=== PATIENT | female | born 1935 | race African-American/Black ===

== ENCOUNTER 2019-04-06 10:12 | Inpatient (IN) | payer OTHER ==
[~2019-04-06] VITALS: Ht 160 cm; Wt 74.0 kg
[2019-04-06 10:20] VITALS: Ht 160 cm; Wt 74.0 kg
--- NOTE | 2019-04-06 10:20 | NUR ---
PT BIB [facility] FROM HER "HER DR OFFICE" PER MEDIC PT "FEELING WEAK SINCE HER "TUMOR REMOVAL FOR BLADDER CANCER" ON 03/30/19, PER MEDICS PT ALSO C/O DIZZINESS WITH NO LOC. PER MEDIC SHE WAS NARENDRA HOWEVER PT STS "THAT IS HER NORMAL" PT HAS HX THYROIDECTOMY, BLADDER CANCER, MELANOMA, AND DM BUT "NO LONGER DIABETIC" UPON ARRIVAL PT IS AAOX4, SPEAKING FULL CLEAR SENTENCES, PT APEPARS LETHARGIC WITH PALE, DRY, WARM SKIN. PT LIPS APPEAR DRY, PT STS "HAVEN'T FELT GOOD TO EAT." PT STS "THEY DIDN'T REMOVE ANYTHING FROM MY BLADDER YET BUT THEY CHECKED AND TOLD ME MY MELANOMA SPREAD EVERYWHERE AND THAT I HAD BLADDER CANCER A WEEK AGO" PT STS +DIZZINESS WITH GENERAL WEAKNESS AT THIS TIME, PT GOWNED AND PLACED ON FULL CM, NSR.
--- NOTE | 2019-04-06 10:28 | NUR ---
MD WOODS AT BEDSIDE PERFOMRING MSE
--- NOTE | 2019-04-06 10:29 | NUR ---
MD NEGRETE AT BEDSIDE PERFORMING MSE
--- NOTE | 2019-04-06 11:16 | NUR ---
EKG IN PROGRESS
--- NOTE | 2019-04-06 11:17 | NUR ---
DAUGHTER IN LAW AT BEDSIDE
--- NOTE | 2019-04-06 11:27 | NUR ---
PT INSTRUCTED TO PROVIDE URINE HARSHAD, PT STS "IT IS HARD FOR ME TO GO BUT I JUST GOT MY ALEJO REMOVED I DON'T WANT ANOTHER JUST GIVE ME A BEDPAN FIRST AND I WILL TRY" BED MENDEZ PROVIDED. FRIEND AT BEDSIDE, CALL LIGHT WITHIN REACH.
[2019-04-06 11:29] LABS: PLATELET COUNT 155 x10^3mcL (130-400)
[2019-04-06 11:35] LABS: RED CELL DISTRIBUTION WIDTH 15.8 % (11.5-14.5)
[2019-04-06 11:43] LABS: CALCIUM 8.3 mg/dL (8.5-10.1); CARBON DIOXIDE 25.2 mmol/L (21-32); CHLORIDE SERUM 102 mmol/L (98-107); CREATININE SERUM 1.1 mg/dL (0.6-1.0); GLUCOSE SERUM 102 mg/dL (74-106); POTASSIUM SERUM 3.8 mmol/L (3.5-5.1); SODIUM SERUM 136 mmol/L (136-145)
[2019-04-06 11:55] LABS: ALKALINE PHOSPHATASE 64 U/L (46-116); ALT/SGPT 19 U/L (14-59); AST/SGOT 42 U/L (15-37); BILIRUBIN TOTAL 0.3 mg/dL (0.20-1.00); FREE T4 1.23 ng/dL (0.76-1.46); TOTAL PROTEIN, SERUM 6.3 g/dL (6.4-8.2)
[2019-04-06 12:03] LABS: ovalocyte/elliptocyte 1+
[2019-04-06 12:04] LABS: ALBUMIN 2.9 g/dL (3.4-5.0); acanthocyte (spur cell) 2+; rbc morphology (normal/abnorm) ABNORMAL (NORMAL)
[2019-04-06 12:09] LABS: BAND NEUTROPHIL 1 % (0-10); BASOPHIL 0 % (0-2); MONOCYTE 2 % (0-7); PLATELET MORPHOLOGY PLATELETS DECREASED; SEGMENTED NEUTROPHILS 91 % (37-75)
--- NOTE | 2019-04-06 12:09 | NUR ---
LAB CALLED AND NOTIFIED ME THAT THERE WILL BE A DELAY IN BLOOD SINCE PT HAS POSITIVE ANTIBODIES, MD NEGRETE MADE AWARE
--- NOTE | 2019-04-06 12:40 | NUR ---
PT REFUSED STRAIGHT CATH, MD NEGRETE MADE AWARE
--- NOTE | 2019-04-06 12:41 | NUR ---
PT IN POSITION OF COMFORT, FLUIDS INFUSING PER EMAR AND MD ORDER, DAUGHTER IN LAW AT BEDSIDE, PT STS "I FEEL A LITTLE BETTER WITH THE FLUIDS"
[2019-04-06] MEDS ORDERED: SYNTHROID0.088 MG PO (13:03)
--- NOTE | 2019-04-06 13:08 | NUR ---
BLOOD TRANSFUSION CONSENT SIGNED BY PT AND PLACED IN PT CHART
[2019-04-06] MEDS ORDERED: CORTEF5 MG PO (13:11)
--- NOTE | 2019-04-06 14:28 | NUR ---
SPOKE WITH ALEXUS FROM LAB, HE INFORMED ME BLOOD IS NOT READY AT THIS TIME
--- NOTE | 2019-04-06 14:53 | NUR ---
PT IN POSITION OF COMFORT, RESPS E/U, DAUGHTER IN LAW AT BEDSIDE
--- NOTE | 2019-04-06 15:10 | NUR ---
REPORT GIVEN TO WILLIAMS MELTON, TELE RM [id number]
--- NOTE | 2019-04-06 15:18 | NUR ---
RECIEVED REPORT OVER THE PHONE FROM ER AND PATIENT HAS HISTORY OF BLADDER CANCER THAT HAS METS AND HAS HX OF DIABETES, MELANOMA AND THYROID CANER. SHE IS ON SYNTHROID AND STEROIDS AT HOME. SHE HAS BEEN WITH NO H AND H OF 6.0/20 AND ORDERED IS A UNIT OF BLOOD. PER THE ER THE PATIENT REFUSED THE 20 GAUGE TO BE PLACED AND A 22 WAS PLACED IN THE RIGHT WRIST. SHE HAS NORMAL WBCS AND WAS NOT ABLE TO GIVE URINE YET. SHE REFUSED A STRAIGHT CATH PER [facility] ER STAFF. SHE IS ALLERGIC TO SULFA AND SHE HAD A POSSITIBE GUIAC OF HER STOL. THE ALBUMIN IS AT 2.9 AND TSH AT 0.020 AND SHE HAS PROTIEN AT 6.3. SHE RECEIVED 80MG OF PROTONIX IN THE ER AND ON D5NS AT 100CC PER HOUR. THE LAST BLOOD SUGAR WAS AT 90 ON ARRIVAL TO THE ER AND WILL PROBALLY BE HIGHER WITH THE INFUSION OF D5 RUNNING. PATIENT IS TO HAVE A TELE MONITOR.
--- NOTE | 2019-04-06 15:25 | NUR ---
BEDSIDE COMMODE PLACED AT BEDSIDE
[2019-04-06 15:44] LABS: UA SPECIFIC GRAVITY <=1.005 (1.005-1.035); microscopic required? YES; urine erythrocyte 1+ (NEGATIVE)
[2019-04-06 16:16] VITALS: BP 140/53
[2019-04-06 16:24] LABS: IRON 7 ug/dL (50-170); TOTAL IRON BINDING CAPACITY 227 ug/dL (250-450)
--- NOTE | 2019-04-06 19:40 | NUR ---
RECEIVED REPORT FROM DAY SHIFT RN. PT RESTING IN BED. AA&O X4. NO SOB ON ROOM AIR. BREATHING EVEN AND UNLABORED. NO C/O PAIN. NO DISTRESS NOTED. IV TO RIGHT WRIST, NS INFUSING. SAFETY MEASURES IN PLACE. BED IN LOWEST POSITION. SIDE RAILS UP X2. INSTRUCTED PT TO USE THE CALL LIGHT FOR ASSISTANCE. CALL LIGHT WITHIN EASY REACH. FAMILY AT BEDSIDE.
[2019-04-06 21:03] VITALS: BP 159/53
[2019-04-06 23:00] VITALS: BP 160/54
--- NOTE | 2019-04-06 23:11 | NUR ---
BLOOD TRANSFUSION INITIATED PER ORDER.
[2019-04-06 23:26] VITALS: BP 160/54
[2019-04-07] VITALS (7 sets, daily range): BP systolic 128–166; BP diastolic 55–80
--- NOTE | 2019-04-07 02:11 | NUR ---
PT RESTING WITH EYES CLOSED. BREATHING EVEN AND UNLABORED ON ROOM AIR. NO DISTRESS NOTED. SAFETY MEASURES IN PLACE. CALL LIGHT WITHIN REACH. WILL CONTINUE TO MONITOR.
--- NOTE | 2019-04-07 02:40 | NUR ---
BLOOD TRANSFUSION COMPLETED. NO ADVERSE REACTION. DR ARRIOLA MADE AWARE. LABS ORDERED AT 0500.
--- NOTE | 2019-04-07 04:59 | NUR ---
PT RESTED AT INTERVALS THROUGHOUT SHIFT. NO SOB ON ROOM AIR. BREATHING EVEN AND UNLABORED. NO C/O PAIN. NO DISTRESS NOTED. BOWEL PREP GIVEN. STOOL CLEAR WATERY. CONSENT FOR EGD/COLONOSCOPY SIGNED AND CHECKLIST INITIATED. SAFETY MEASURES MAINTAINED. ALL NEEDS ATTENDED TO. WILL CONTINUE TO MONITOR AND ENDORSE CONTINUITY OF CARE TO ONCOMING RN.
--- NOTE | 2019-04-07 07:22 | NUR ---
RECEIVED REPORT FROM GABY MELTON. PATIENT RESTING COMFORTABLY IN BED AFTER ANOTHER WATERY BM DUE TO BOWEL PREP. IV TO RT HAND IS PATENT AND INFUSING NS @ 100 ML/HR. NO REDENSS OR PAIN. TELE # [address] PT DENIES CHEST PAIN. PT ON ROOM AIR. NO C/O SOB AND NO DISTRESS NOTED. AWAITING EGD AND COLONOSCOPY. ALL QUESTIONS AND CONCERNS ADDRESSED.
--- NOTE | 2019-04-07 07:43 | NUR ---
REPORT GIVEN TO GI LAB. ALL QUESTIONS AND CONCERNS ADDRESSED. PT WILL BE TAKEN DOWN FOR EGD/COLONOSCOPY IN ABOUT TEN MINUTES.
[2019-04-07 08:12] LABS: PLATELET COUNT 155 x10^3mcL (130-400)
[2019-04-07 08:15] LABS: RED CELL DISTRIBUTION WIDTH 19.8 % (11.5-14.5)
--- NOTE | 2019-04-07 08:22 | NUR ---
PATIENT TAKEN DOWNSTAIRS FOR EGD COLONOSCOPY NOW.
[2019-04-07 09:20] LABS: CARBON DIOXIDE 20.4 mmol/L (21-32); CHLORIDE SERUM 113 mmol/L (98-107); CREATININE SERUM 1.2 mg/dL (0.6-1.0); GLUCOSE SERUM 126 mg/dL (74-106); MAGNESIUM 2.2 mg/dL (1.8-2.4); SODIUM SERUM 146 mmol/L (136-145)
--- NOTE | 2019-04-07 09:37 | NUR ---
PROCEDURE COMPLETE. RECEIVED REPORT FROM ADELA MELTON IN GI. EGD WAS NORMAL. COLONOSCOPY SHOWED DIVERTICULOSIS WITH NO OBVIOUS BLEEDING AND A BIOPSY OF THE RT COLON WAS TAKEN. AWAITING PATIENT ARRIVAL TO FLOOR.
--- NOTE | 2019-04-07 09:44 | NUR ---
LUIS MANUEL MCCARTHY NOTIFIED OF H/H 7.05/16 AND EGD/COLONOSCOPY RESULTS.
--- NOTE | 2019-04-07 10:40 | NUR ---
CALLED PHARMACY FOR IV FERRLICIT.
[2019-04-07 11:04] LABS: BAND NEUTROPHIL 2 % (0-10); BASOPHIL 0 % (0-2); MONOCYTE 5 % (0-7); SEGMENTED NEUTROPHILS 84 % (37-75); ovalocyte/elliptocyte 1+; rbc morphology (normal/abnorm) ABNORMAL (NORMAL); tear drop cell (dacryocyte) 1+
[2019-04-07 11:05] LABS: schistocyte (helmet cell) 1+
--- NOTE | 2019-04-07 12:34 | NUR ---
SPOKE WITH LUIS MANUEL MCCARTHY TO NOTIFY OF PATIENT BP 164/66 AND THAT PATIENT WOULD LIKE TO SPEAK WITH A DOCTOR ABOUT THE PLAN OF CARE MOVING FORWARD. LUIS MANUEL TO COME AND SPEAK WITH PATIENT AND INSTRUCTED TO MONITOR BP. NO MEDICATION ORDERED.
--- NOTE | 2019-04-07 12:36 | NUR ---
DR GOVEA IN TO SEE PATIENT AND DISCUSS EGD/COLONOSCOPY RESULTS. INFORMED THAT NO BLEEDING WAS SEEN AND HE RECOMMENDED PT BEGIN TAKING DAILY IRON AND FOLLOW UP WITH A HIGHER LEVEL OF CARE FOR FURTHER GI TREATMENT. PATIENT AND FAMILY VERBALIZED UNDERSTANDING AND ALL QUESTIONS AND CONCERNS WERE ADRESSED.
--- NOTE | 2019-04-07 13:01 | NUR ---
SPOKE WITH LUIS MANUEL TO INFORM OF PATIENT HOME MEDICATION LOSARTAN 25 MG PO DAILY. LUIS MANUEL ORDERED TO CONTINUE WITH FIRST DOSE NOW.
--- NOTE | 2019-04-07 15:12 | NUR ---
NOTIFIED SHARI ISSA OF BLOOD PRESSURE RECHECK 1 HOUR AFTER LOSARTAN ADMINISTRATION 150/73. LUIS MANUEL OK WITH THAT AND WOULD LIKE TO CONTINUE TO MONITOR.
--- NOTE | 2019-04-07 18:18 | NUR ---
SHARI ISSA PAGED FOR BLOOD CULTURE RESULTS GRAM NEGATIV RODS, CONTINUED HIGH BLOOD PRESSURE, AND REQUEST FOR OK TO SHOWER. AWAITING RESPONSE.
--- NOTE | 2019-04-07 18:23 | NUR ---
RECEIVED CALL FROM SHARI ISSA. LUIS MANUEL ORDERED ZOSYN 3.372MG Q8H, OK TO SHOWER, AND MONITORING OF SBP <170.
--- NOTE | 2019-04-07 18:50 | NUR ---
PATIENT RESTING COMFORTABLY IN BED WITH FAMILY AT BEDSIDE. ALL NEEDS MET. SALINE LOCK TO RT HAND IS PATENT AND INTACT. NO REDNESS OR PAIN. TELE # [address] PATIENT DENIES CHEST PAIN. PT ON ROOM AIR. NO C/O SOB AND NO DISTRESS NOTED. PT TO NOTIFY WHEN SHE IS READY TO SHOWER. WILL ENDORSE ALL CARE TO ONCOMING NURSE.
--- NOTE | 2019-04-07 19:40 | NUR ---
RECEIVED REPORT FROM DAY SHIFT RN. PT SITTING UP IN BED. AA&O X4. NO SOB NOTED. BREATHING EVEN AND UNLABORED ON ROOM AIR. NO C/O PAIN. NO DISTRESS NOTED. IV TO RIGHT WRIST, SALINE LOCKED. SAFETY MEASURES IN PLACE. BED IN LOWEST POSITION. SIDE RAILS UP X2. INSTRUCTE DPT TO USE THE CALL LIGHT FOR ASSISTANCE. CALL LIGHT WITHIN REACH. FAMILY AT BEDSIDE.
--- NOTE | 2019-04-07 21:30 | NUR ---
PT AMBULATED TO THE BATHROOM USING FWW WITH ASSIST. NO DISTRESS NOTED.
[2019-04-08 05:36] VITALS: BP 118/77
[2019-04-08 05:38] VITALS: BP 140/54
[2019-04-08 06:09] LABS: PLATELET COUNT 169 x10^3mcL (130-400)
--- NOTE | 2019-04-08 06:21 | NUR ---
PT RESTED IN INTERVALS THROUGHOUT SHIFT. NO SOB NOTED. NO C/O PAIN. SAFETY MEASURES MAINTAINED. ALL NEEDS ATTENDED TO. AMBULATED TO THE BATHROOM USING FWW WITH ASSIST. BED IN LOWEST POSITION. SIDE RAILS UP X2. CALL LIGHT WITHIN EASY REACH. WILL ENDORSE CONTINUITY OF CARE TO ONCOMING RN.
--- NOTE | 2019-04-08 08:00 | NUR ---
RECIEVED PATIENT WHO IS ALERT AND ORINETD TIMES FOUR. PATIENT HAS BEEN MORE ACTIVE THAN SHE WAS TWO DAYS AGO ON ADMIT. SHE HAS INDICATED SHE WAS ADIVSE DBY THE HEADHUNTER THAT SHE HAS POSITIVE BLOOD CULTURE AND WILL NEE DTO STAY FOR NOW. SHE HAS NO FEVER AND HAS HAS A COLONOSCOPY AD EGD AND THEY FOUND DIVERTICULITIS WITH NO ACTIVE BLEED. SHE IS WITH LOW H AND H ANHD HAD ONE UINT ON THE DAY OF ADMIT AND AT 7.9/25. HAS BEEN ON ZOSYN AND FERRICET ORDERED. SHE HAS BEEN TOLERATING DIET AND FLUIDS AND HAS BEEN AMBULATING TO THE RESTROOM AND BACK. SHE DENIE SANY DIARRHEA AT THIS TIME. SHE IS OTE DTO HAVE CARDIOMEGALY AND SOME SUSPISION FOR AIR SPACE DISEASE ON THE CHEST XRAY. PATIENT USES A WALKER AT HOME. SHE DENIES ANY PAIN AT THIS TIME AND WILL CONTINUE TO MONITOR INDICATED.
[2019-04-08 08:10] LABS: RED CELL DISTRIBUTION WIDTH 19.5 % (11.5-14.5)
[2019-04-08 08:46] LABS: CALCIUM 7.8 mg/dL (8.5-10.1); CARBON DIOXIDE 20.1 mmol/L (21-32); CHLORIDE SERUM 110 mmol/L (98-107); CREATININE SERUM 1.1 mg/dL (0.6-1.0); GLUCOSE SERUM 79 mg/dL (74-106); POTASSIUM SERUM 3.7 mmol/L (3.5-5.1); SODIUM SERUM 142 mmol/L (136-145)
[2019-04-08 09:00] VITALS: BP 120/52
--- NOTE | 2019-04-08 10:27 | NUR ---
CLAUDIA PATIENT PERMISSION STAFF CALLED THE DAUGHTER IN LAW TO CHANDA ZELAYA ON THE BLODO INFECTION. LEFT MESSAGES WITH CALL BACK NUMBER. TEO WANTS THE RESULT OF HER BIOPSY AND CAUSITIVE ORGANISM WELL. WILL RELAY HER REQUEST TO THE ON COMING SHIFT TO FOLLOW UP IN THE MORNING AND INSTRUCT TO MAKE A COPY FOR THE PHYSICIAN WELL.
--- NOTE | 2019-04-08 10:57 | NUR ---
DAUGHTER IN LAW CALLED BACK AND TO ACKNOWLEDGE THE RECEIPT OF THE MESSAGE CALLED. PATIENT IS STILL COMMUNICATING WITH FAMILY BY TEXT.
[2019-04-08 12:29] LABS: BAND NEUTROPHIL 3 % (0-10); BASOPHIL 0 % (0-2); MONOCYTE 6 % (0-7); SEGMENTED NEUTROPHILS 80 % (37-75); rbc morphology (normal/abnorm) ABNORMAL (NORMAL)
[2019-04-08 12:31] LABS: PLATELET MORPHOLOGY PLATELETS NORMAL
[2019-04-08 13:08] VITALS: BP 163/47
[2019-04-08 17:33] VITALS: BP 164/70
--- NOTE | 2019-04-08 19:50 | NUR ---
RECEIVED REPORT FROM DAY SHIFT RN. PT IN BED, WATCHING TV. NO SOB NOTED. NO C/O PAIN. NO DISTRESS NOTED. IV TO RFA, INTACT. SAFETY MEASURES IN PLACE. BED IN LOWEST POSITION. SIDE RAILS UP X2. INSTRUCTED PT TO USE THE CALL LIGHT FOR ASSISTANCE. CALL LIGHT WITHIN REACH.
[2019-04-08 20:57] VITALS: BP 155/64
[2019-04-09] VITALS (10 sets, daily range): BP systolic 132–176; BP diastolic 45–76
--- NOTE | 2019-04-09 06:21 | NUR ---
PT RESTED AT LONG INTERVALS THROUGHOUT SHIFT. NO SOB ON ROOM AIR. NO C/O PAIN. NO DISTRESS NOTED. AMBULATED TO THE BATHROOM USING FWW AND ASSISTANCE. SAFETY MEASURES MAINTAINED. ALL NEEDS ATTENDED TO. WILL ENDORSE CONTINUITY OF CARE TO ONCOMING RN.
[2019-04-09 06:32] LABS: CALCIUM 7.5 mg/dL (8.5-10.1); CARBON DIOXIDE 22.9 mmol/L (21-32); CHLORIDE SERUM 112 mmol/L (98-107); CREATININE SERUM 1.1 mg/dL (0.6-1.0); GLUCOSE SERUM 65 mg/dL (74-106); POTASSIUM SERUM 3.2 mmol/L (3.5-5.1); SODIUM SERUM 144 mmol/L (136-145)
[2019-04-09 07:08] LABS: PLATELET COUNT 168 x10^3mcL (130-400)
[2019-04-09 07:13] LABS: RED CELL DISTRIBUTION WIDTH 19.7 % (11.5-14.5)
--- NOTE | 2019-04-09 07:20 | NUR ---
RECEIVED PT FROM DIATHERMY EQUIPMENT REPAIRER RN. Sam/HECTOR. TELE#4. DENIES CHEST PAIN/PRESSURE. RESPIRATIONS EQUAL AND UNLABORED ON RA. DENIES SOB. PT DENIES ANY PAIN AT THIS TIME. PT DENIES ANY N/V. WALKER AT BEDSIDE. WILL ASSIST OUT OF BED TO BEDSIDE COMMODE. IV TO RFA SALINE LOCKED, NO REDNESS OR SWELLING NOTED. WILL CONTINUE TO MONITOR. CALL LIGHT IN REACH. BED IN LOWEST POSITION.
--- NOTE | 2019-04-09 07:49 | NUR ---
SPOKE WITH LUIS MANUEL MCCARTHY INFORMED HER PT HGB IS 6.7. NO CHANGE IN ORDERS RECEIVED.
[2019-04-09 08:34] LABS: rbc morphology (normal/abnorm) ABNORMAL (NORMAL)
--- NOTE | 2019-04-09 09:18 | NUR ---
PT IN BED RESTING. NO ACUTE RESP DISTRESS NOTED ON RA. PT DENIES ANY SOB AT THIS TIME. GIVEN PO MEDS. TOLERATED WELL. BLOOD PRESSURE CHECKED WAS 137/50, HR 54. PT DENIES ANY PAIN AT THIS TIME. IV TO RFA FLUSHED WELL. NO REDNESS OR SWELLING NOTED. IV ANTIBIOTICS INFUSING ORDERED. WILL CONTINUE TO MONITOR. CALL LIGHT IN REACH. BED IN LOWEST POSITION.
--- NOTE | 2019-04-09 10:06 | NUR ---
SPOKE WITH DAUGHTER IN LAW ÓSCAR MACHUCA GIVEN UPDATES ON PT POC.
--- NOTE | 2019-04-09 10:32 | NUR ---
SPOKE WITH PHARMACIST REGARDING PT IV FERRLECIT. ACCORDING TO PHARMACIST YOANA FERRLECIT IV IS NO LONGER AVAILABLE. LUIS MANUEL MCCARTHY MADE AWARE.
--- NOTE | 2019-04-09 11:10 | NUR ---
ASSISTED PT TO BATHROOM WITH WALKER. PT TOLERATED WELL. ASSISTED PT BACK TO BED. PT C/O SLIGHT HEADACHE. PT STATES HEADACHE IS TOLERABLE AT THIS TIME. WILL CONTINUE TO MONITOR. CALL LIGHT IN REACH. BED IN LOWEST POSITION.
--- NOTE | 2019-04-09 11:15 | NUR ---
SPOKE WITH PRESCIOUS FROM LAB. PER PRESCIOUS THE BLOOD PT HAS AVAILABLE HAS . PT WILL NEED TO BE TYPE AND SCREENED AGAIN, SO BLOOD CAN BE ORDERED FROM [facility]. LUIS MANUEL MCCARTHY MADE AWARE. LUIS MANUEL MCCARTHY WILL ORDER NEW TYPE AND SCREEN.
--- NOTE | 2019-04-09 11:39 | NUR ---
SPOKE WITH JOSE JUAN IN LAB. PER JOSE JUAN NEED A NEW ORDER FOR 1 UNITS OF PRBCS. LUIS MANUEL MCCARTHY MADE AWARE. NICOLÁS ISSA WILL SPEAK WITH JOSE JUAN.
--- NOTE | 2019-04-09 13:00 | NUR ---
PT SITTING UP IN BED. NO ACUTE RESP DISTRESS NOTED ON RA. PT DENIES SOB AT THIS TIME. AUTHORIZER AT BEDSIDE. DRAWING BLOOD FOR TYPE AND SCREEN. FAMILY AT BEDSIDE. PT STILL C/O MILD HEADACHE. PT STATES "THE HEADACHE IS JUSTIRRITATING. I DO NOT WANT MEDICATION. I WOULD RATHER JUST RELAX" WILL CONTINUE TO MONITOR. CALL LIGHT IN REACH. BED IN LOWEST POSITION.
--- NOTE | 2019-04-09 14:33 | NUR ---
PT SITTING UP IN BED. NO ACUTE REPS DISTRESS NOTED ON RA. PT STATES KABA HAS IMPROVED SINCE RECEIVING TYLENOL. BLOOD TRANSFUSION INTITIATED. PT PREMEDICATED WITH TYLENOL. IV TO RFA FLUSHED WELL, GOOD BLOOD RETURN. PRETRANSFUSION VITAL TAKEN. BLOOD VERIFIED WITH VIC MELTON. NO PROBLEMS ENCOUNTERED. PT EDUCATED ON ADVERSE REACTION SYMPTOMS. PT VERBALIZED UNDERSTANDING. BLOOD INFUSING AT 60 ML/HR. WILL CONTINUE TO MONITOR.
--- NOTE | 2019-04-09 16:30 | NUR ---
PT IN BED RESTING. XRAY DATABASE MARKETING ANALYST AT BEDSIDE FOR KUB. PT STATES SHE IS STILL HAVING PAIN TO LLQ 4/10 FEELS LIKE ITS BURNING. PT STATES PAIN IS JUST UNCOMFORTABLE. BLOOD INFUSING AT 100 ML/HR. IV PATENT AND INFUSING. NO REDNESS OR SWELLING NOTED. GIVEN PO MEDS. TOLERATED WELL. WILL CONTINUE TO MONITOR. CALL LIGHT IN REACH. BED IN LOWEST POSITION.
--- NOTE | 2019-04-09 18:32 | NUR ---
PT SITTING UP IN BED. BLOOD TRANSFUSION COMPLETE. VITAL SIGNS TAKEN BLOOD PRESSURE 176/62. CALLED LUIS MANUEL MCCARTHY, MADE AWARE. PER LUIS MANUEL MANAGER EMPLOYMENT CONTINUE TO MONTIOR IF BLOOD PRESSURE INCREASES NOTIFY ONCALL RESIDENT. PT STATES PAIN TO LLQ ABDOMEN IS STILL THERE BUT HAS IMPROVED SOME. PT STILL DECLINING ANY PAIN MEDICAITON. FAMILY AT BEDSIDE. WILL CONTINUE TO MONITOR. CALL LIGHT IN REACH. BED IN LOWEST POSITION.
--- NOTE | 2019-04-09 19:45 | NUR ---
PT SEEN, RESTING IN BED, ALERT AND ORIENTED X 3 WITH PERIODS OF FORGETFUL, DENIES HEADACHE OR DIZZINESS, BREATHING EVEN AND UNLABORED, LUNG SOUNDS CLEAR, ON ROOM AIR WITH NO RESP DISTRESS OR SOB NOTED, NO DIFFICULTY BREATHING NOTED, ON TELE#4 NSR, DENIES CHEST PAIN, SL TO RFA, PULSES PALPABLE, EDEMA NOTED TO BLE, GENERALIZED WEAKNESS, FWW WITH ASSIST, ABD SOFT WITH ACTIVE BS, NO BM AT THIS TIME, PT HAD ONE EPISODE OF FORMED BM THIS MORNING BUT WITH NO S&S OF GI BLEED NOTED, INCONTINENT AT TIMES, FALL PRECAUTION IN PLACE, SIDE RAILS UP, BED ALARM ON, NO DISTRESS NOTED, WILL KEEP TO MONITOR.
--- NOTE | 2019-04-10 00:07 | NUR ---
DR VERGARA MADE AWARE OF PT K:3.2 WITH YSTERDAY'S MORNING, NO NEW ORDER RECEIVE AT THIS TIME.
[2019-04-10 03:47] LABS: PLATELET COUNT 160 x10^3mcL (130-400); RED CELL DISTRIBUTION WIDTH 23.2 % (11.5-14.5)
--- NOTE | 2019-04-10 03:52 | NUR ---
DR VERGARA MADE AWARE OF PT'S WBC-22.8, NO NEW ORDER RECEIVED.
[2019-04-10 03:58] LABS: SEGMENTED NEUTROPHILS 80 % (37-75)
[2019-04-10 03:59] LABS: MONOCYTE 10 % (0-7); PLATELET MORPHOLOGY PLATELETS NORMAL; rbc morphology (normal/abnorm) ABNORMAL (NORMAL)
[2019-04-10 05:37] VITALS: BP 187/73
--- NOTE | 2019-04-10 06:12 | NUR ---
DR VERGARA MADE AWARE OF PT'S BP-187/73 THIS MORNING, PER DR VERGARA THAT OKAY TO GIVE COZZAR 25MG EARLY, MEDS GIVEN.
--- NOTE | 2019-04-10 06:23 | NUR ---
PT ASLEEP BUT EASILY AROUSABLE, SLEPT ON AND OFF WHOLE NIGHT, ZOSYN INFUSING AT THIS TIME, FALL PRECAUTION IN PLACE, CONDITION NO CHANGE, NO DISTRESS NOTED, WILL KEEP TO MONITOR.
[2019-04-10 06:25] LABS: PLATELET COUNT 152 x10^3mcL (130-400)
[2019-04-10 06:50] LABS: CARBON DIOXIDE 20.9 mmol/L (21-32); CHLORIDE SERUM 109 mmol/L (98-107); GLUCOSE SERUM 62 mg/dL (74-106); POTASSIUM SERUM 3.4 mmol/L (3.5-5.1); SODIUM SERUM 142 mmol/L (136-145)
--- NOTE | 2019-04-10 07:20 | NUR ---
PT RESTING IN BED, AXOX3 WITH PERIODS OF FORGETFUL, DENIES HEADACHE OR DIZZINESS, BREATHING EVEN AND UNLABORED, LUNG SOUNDS CLEAR, ON ROOM AIR WITH NO RESP DISTRESS OR SOB NOTED, NO DIFFICULTY BREATHING NOTED, TELE#4, NSR, DENIES CHEST PAIN, SL TO RFA, PULSES PALPABLE, TRACE EDEMA NOTED TO BLE, GENERALIZED WEAKNESS, FWW WITH ASSIST, ABD SOFT, ACTIVE BS X 4, INCONTINENT AT TIMES, IV PATENT AND NO INFILTRATION NOTED, FALL PRECAUTION MONITORED, BED ALARM ON, NO ACUTE DISTRESS NOTED, PALP PULSES, CAP REFILL < 3 SECS, ALL NEEDS ADDERSSED AT THIS TIME, WILL CONTINUE TO MONITOR.
--- NOTE | 2019-04-10 07:23 | NUR ---
BEDSIDE HANDOFF REPORT GIVEN TO THI-RN, ALL QUESTIONS ANSWERED AND CONCERNS ADDRESSED.
--- NOTE | 2019-04-10 07:39 | NUR ---
RECEIVED REPORT FROM KACIE RN, PT IN NO ACUTE RESP DISTRESS
--- NOTE | 2019-04-10 08:48 | NUR ---
SCREEN FOR LOW CHINO SCALE AT RISK PRESSURE ULCER INJURY PREVENTION INTERVENTIONS: -TURN AND REPOSITION PATIENT Q 2H OFFLOAD LEFT AND RIGHT HIPS -ASSESS AND MONITOR SKIN CONDITION DURING POSITION CHANGE -OFFLOAD BILATERAL HEELS BY PLACING PILLOWS UNDER CALVES AT ALL TIMES, UNLESS OTHERWISE CONTRAINDICATED -KEEP SKIN CLEAN AND DRY AT ALL TIMES.
[2019-04-10 08:56] LABS: MONOCYTE 7 % (0-7); SEGMENTED NEUTROPHILS 72 % (37-75)
[2019-04-10 08:57] LABS: BAND NEUTROPHIL 0 % (0-10); BASOPHIL 0 % (0-2)
[2019-04-10 08:58] LABS: rbc morphology (normal/abnorm) ABNORMAL (NORMAL)
[2019-04-10 08:59] LABS: PLATELET MORPHOLOGY PLATELETS NORMAL
--- NOTE | 2019-04-10 09:59 | NUR ---
PT HAD DIARRHEA X 1 EPISODE
[2019-04-10 10:06] VITALS: BP 174/60
--- NOTE | 2019-04-10 13:43 | NUR ---
BLOOD LAB REPORTED PT DEVELOPED ANTIBODIES AFTER 2 BLOOD TRANSFUSION, NEXT BLLOD TRASNFUSION SUPPLY WILL COME FROM [facility], PT AND FAMILY MADE AWARE
[2019-04-10 13:52] VITALS: BP 160/65
--- NOTE | 2019-04-10 15:01 | NUR ---
PT WANTED TO TAKE CORTEF ON EMPTY STOMACH, EDUCATED PT THAT CROTEF NEEDED TO BE TAKEN W/ FOOD/MEAL TO PREVENT GI IRRITATION/GI BLEEDING, PT SAID "I'VE BEEN TAKING THIS MED FOR 10 YEARS LIKE THAT AND I WANT IT THAT WAY." FAMILY MEMBERS AT BEDSIDE AGREED WITH PT AND ENCOUARGED PT TO TAKE CORTEF ON EMPTY STOMACH, TYPESETTER APPRENTICE JANEL ACUNA AND CHARGE NURSE SHANNON MADE AWARE, WILL CONTINUE TO EDUCATE PT AND FAMILY
[2019-04-10 17:16] VITALS: BP 162/62
--- NOTE | 2019-04-10 18:22 | NUR ---
PT IN BED, VERBAL, ABLE TO MAKE NEEDS KNOWN, IN NO ACUTE RESP DISTRESS, NO SOB/COUGH, DENIED CP/PRESSURE/KABA, DENIED N/V/DIZZINESS, AMBULATORY W/ ASSIST , FALL RISK, CONTINENT, TELE, FAMILY AT BEDSIDE, ALL NEEDS ADDRESSED AT THIS TIME, SAFETY PROTOCOL FOLLOWED, WILL ENDORSE TO ONCOMING RN
[2019-04-10 21:13] VITALS: BP 156/54
--- NOTE | 2019-04-11 04:35 | NUR ---
PT SLEEPING BUT EASILY AROUSABLE, NO ACUTE DISTRESS, DENIES SOB. CHEST RISE/FALL SYMMETRIC, E/U BREATHING NOTED.
--- NOTE | 2019-04-11 05:18 | NUR ---
PT REPORTING "LOW BLOOD SUGAR". RANDOM GLUCOSE CHECKED AT THIS TIME. BLOOD SUGAR CHECKED 52. RECHECKED ON PT'S OPPOSITE HAND, BLOOD SUGAR OF 55. DR. VERGARA MADE AWARE, PER DR. VERGARA OK TO GIVE ORANGE JUICE. ORANGE JUICE PROVIDED TO PATIENT.
[2019-04-11 05:48] VITALS: BP 123/69
--- NOTE | 2019-04-11 06:03 | NUR ---
BLOOD SUGAR RECHECKED, BLOOD SUGAR 91 AT THIS TIME, DR. VERGARA MADE AWARE.
[2019-04-11 06:57] LABS: PLATELET COUNT 146 x10^3mcL (130-400)
[2019-04-11 07:05] LABS: CALCIUM 7.8 mg/dL (8.5-10.1); CARBON DIOXIDE 21.6 mmol/L (21-32); CHLORIDE SERUM 109 mmol/L (98-107); POTASSIUM SERUM 3.5 mmol/L (3.5-5.1); SODIUM SERUM 142 mmol/L (136-145)
--- NOTE | 2019-04-11 07:05 | NUR ---
GAVE REPORT TO LINH DIALLO UPDATES PROVIDED, QUYEN ASNWERED.
--- NOTE | 2019-04-11 07:05 | NUR ---
RECEIVED BEDSIDE REPORT FROM INTERACTIVE MEDIA DIRECTOR NURSE AT THIS TIME. PATIENT RESTING COMFORTABLY IN BED. NO APPARENT DISTRESS OR DISCOMFORT NOTED. PATIENT DENIES DIZZINESS AT THIS TIME. BREATHING EVEN AND UNLABORED. NO RESPIRATORY DISTRESS OR DISCOMFORT NOTED. PATIENT DENIES SHORTNESS OF BREATH. DENIES CHEST PAIN/PRESSURE AT THIS TIME. IV PATENT AND INTACT. ALL QUESTIONS AND CONCERNS ADDRESSED. ALL NEEDS ATTENDED TO. WILL CONTINUE TO MONITOR
[2019-04-11 07:34] LABS: RED CELL DISTRIBUTION WIDTH 25.9 % (11.5-14.5)
[2019-04-11 08:10] LABS: GLUCOSE SERUM 48 mg/dL (74-106)
--- NOTE | 2019-04-11 08:50 | NUR ---
RECEIVED PHONE CALL FROM LAB REGARDING PATIENT BLOOD SUGAR 48. REPORTED TO SHARI MAURICIO PATIENT GLUCOSE 48, BUT CAMPUS MONITOR SPOT CHECK 91 THIS AM. PER SHARI MAURICIO NO CHANGE IN ORDERS. RECHECKED PATIENT BLOOD SUGAR AT THIS TIME AND IS NOW 85. NO APPARENT DISTRESS NOTED. PATIENT RESTING COMFORTABLY IN BED. ALL NEEDS ATTENDED TO. WILL CONTINUE TO MONITOR
[2019-04-11 09:28] VITALS: BP 145/48
--- NOTE | 2019-04-11 09:54 | NUR ---
MORNING MEDICATIONS ADMINISTERED AT THIS TIME. PATIENT TOLERATED MEDICATION ADMINISTRATION WELL. NO ADVERSE EFFECTS NOTED. ALL NEEDS ATTENDED TO. WILL CONTINUE TO MONITOR
[2019-04-11 11:40] LABS: MONOCYTE 2 % (0-7); SEGMENTED NEUTROPHILS 81 % (37-75)
[2019-04-11 11:41] LABS: rbc morphology (normal/abnorm) ABNORMAL (NORMAL)
[2019-04-11 12:36] VITALS: BP 151/62
--- NOTE | 2019-04-11 12:45 | NUR ---
PATIENT SITTING UP IN BED EATING LUNCH AT THIS TIME. PATIENT TOLERATING DIET WELL. NO APPARENT DISTRESS OR DISCOMFORT NOTED. ALL NEEDS ATTENDED TO. WILL CONTINUE TO MONITOR
[2019-04-11 17:56] VITALS: BP 162/70
--- NOTE | 2019-04-11 18:01 | NUR ---
PATIENT SITTING UP IN BED EATING DINNER AT THIS TIME. PATIENT TOLERATING DIET WELL. NO APPARENT DISTRESS OR DISCOMFORT NOTED. ALL NEEDS ATTENDED TO. WILL CONTINUE TO MONITOR
--- NOTE | 2019-04-11 18:48 | NUR ---
SPOKE TO DR VERGARA REGARDING PATIENT BLOOD PRESSURE OF 162/[address] VERGARA HE WILL ASSESS PATIENT AND ORDER BLOOD PRESSURE MEDICATIONS. AWAITING ORDERS AT THIS TIME. ALL NEEDS ATTENDED TO. WILL CONTINUE TO MONITOR
--- NOTE | 2019-04-11 18:56 | NUR ---
PATIENT RESTING COMFORTABLY IN BED AT THIS TIME. NO APPARENT DISTRESS OR DISCOMFORT NOTED. IV PATENT AND INTACT. ALL QUESTIONS AND CONCERNS ADDRESSED. ALL NEEDS ATTENDED TO. SAFETY PRECAUTIONS MAINTAINED. WILL ENDORSE ALL CARE TO HEALTH CARE FACILITIES INSPECTOR NURSE
--- NOTE | 2019-04-11 19:15 | NUR ---
REPORT RECEIVED FROM DAY SHIFT RN. PATIENT WAS SEEN AND IS RESTING COMFORTABLY IN BED. NO DISTRESS NOTED. BREATHING EVEN AND UNLABORED ON ROOM AIR. NO SOB OR RESP DISTRESS. DENIES CHEST PAIN/PRESSURE. NO C/O PAIN. NO ACTIVE SIGNS OF GI BLEED. PATIENT DENIES BLOOD IN STOOL OR URINE. DENIES N/V. IV TO THE LFA. SALINE LOCK. PATENT AND INTACT. NO REDNESS OR SWELLING NOTED. COMFORT AND SAFETY MEASURES IN PLACE. CALL LIGHT IS WITHIN REACH. BED IS LOCKED AND IN THE LOWEST POSITION. SIDE RAILS UP X2. CALL LIGHT IS WITHIN REAC. WILL CONTINUE TO MONITOR.
--- NOTE | 2019-04-11 20:15 | NUR ---
BP 160/64 (103), HR 61. DR VERGARA MADE AWARE. PER DR VERGARA, PRN APRESOLINE IS NOT NEEDED AT THIS TIME.
--- NOTE | 2019-04-11 20:15 | NUR ---
P 160/64 (103), HR 61. DR VERGARA MADE AWARE. PER DR VERGARA, PRN APRESOLINE IS OT NEEDED AT THIS TIME.
[2019-04-11 20:54] VITALS: BP 160/64
--- NOTE | 2019-04-12 00:13 | NUR ---
RESTING IN BED WITH EYES CLOSED. NO DISTRESS NOTED. BREATHING EVEN AND UNLABORED ON ROOM AIR. NO SOB NOTED. NO S/S OF PAIN NOTED. CALL LIGHT IS WITHIN REACH. SAFETY MEASURES IN PLACE. WILL CONTINUE TO MONITOR.
--- NOTE | 2019-04-12 02:48 | NUR ---
RESTING IN BED WITH EYES CLOSED. NO DISTRESS NOTED. BREATHING EVEN AND UNLABORED ON ROOM AIR. NO S/S OF PAIN NOTED. SAFETY MEASURES IN PLACE. CALL LIGHT IS WITHIN REACH. WILL CONTINUE TO MONITOR.
[2019-04-12 05:01] VITALS: BP 174/84
--- NOTE | 2019-04-12 05:01 | NUR ---
HIGH BP 176/84 (114), HR 60. HR TRENDING B/W 58-61 ON TELE MONITOR. NOTIFIED DR VERGARA THAT PRN HYDRALAZINE CAN NOT BE GIVEN DUE TO LOW HR. PER DR VERGARA WILL RECHECK BP LATER. PATIENT ALSO HAD 1 LOOSE BM. BM WAS GREEN. NO DISTRESS NOTED. SAFETY MEASURES IN PLACE. CALL LIGHT IS WITHIN REACH. WILL CONTINUE TO MONITOR.
--- NOTE | 2019-04-12 06:08 | NUR ---
RANDOM BS CHECK X2. BS 60 AND 66. DENIES S/S OF HYPOGLYCEMIA. GAVE PATIENT ORANGE JUICE X2. WILL REASSESS BS
[2019-04-12 06:15] LABS: PLATELET COUNT 150 x10^3mcL (130-400)
--- NOTE | 2019-04-12 06:29 | NUR ---
BS 78 AFTER ORANGE JUICE X2.
[2019-04-12 06:30] LABS: CALCIUM 7.9 mg/dL (8.5-10.1); CARBON DIOXIDE 21.8 mmol/L (21-32); CHLORIDE SERUM 109 mmol/L (98-107); CREATININE SERUM 0.9 mg/dL (0.6-1.0); GLUCOSE SERUM 61 mg/dL (74-106); POTASSIUM SERUM 3.7 mmol/L (3.5-5.1); SODIUM SERUM 141 mmol/L (136-145)
--- NOTE | 2019-04-12 06:40 | NUR ---
LFA IV INFILRATED. NEW IV STARTED BY LINH MIRELES TO THE LEFT WRIST, 22G. FLUSHES WELL. TOLERATED WELL. PRN HYDRALAZINE GIVEN FOR HIGH BP. WILL ENDORSE TO DAY SHIFT RN.
--- NOTE | 2019-04-12 06:55 | NUR ---
LW IV INFILTRATED. LEFT THUMB RED. PATIENT STATES HAND HAS MILD THROBBING. REMOVED LW IV. CATHETER INTACT. ICE PACK PLACED ON HAND. PATIENT STATES PAIN IS IMPROVING. REDNESS IS ALSO IMPROVING AT THIS TIME. NO IV ACCESS AT THIS TIME. [facility] DAY SHIFT RN.
--- NOTE | 2019-04-12 06:56 | NUR ---
RESTED IN LONG INTERVALS THROUGHOUT THE NIGHT. NO ACUTE CHANGES NOTED. BREATHING EVEN AND UNLABORED ON ROOM AIR. NO DISTRESS NOTED. NO C/O PAIN THROUGHOUT THE NIGHT. IV TO THE LW. PATENT AND INTACT. NO REDNESS OR SWELLING NOTED. COMFORT AND SAFETY MEASURES IN PLACE. CALL LIGHT IS WITHIN REACH. WILL ENDORSE CARE TO DAY SHIFT RN.
--- NOTE | 2019-04-12 07:15 | NUR ---
RECEIVED BEDSIDE REPORT FROM [employer] PICK UP DRIVER NURSE AT THIS TIME. PATIENT RESTING COMFORTABLY IN BED. NO APPARENT DISTRESS OR DISCOMFORT NOTED. BREATHING EVEN AND UNLABORED. NO RESPIRATORY DISTRESS OR DISCOMFORT NOTED. PATIENT DENIES SHORTNESS OF BREATH. PATIENT DENIES CHEST PAIN/PRESSURE AT THIS TIME. NO IV ACCESS AT THIS TIME. PATIENT REFUSING IV INSERTION AT THIS TIME. WILL NOTIFY PHYSICIAN. ALL QUESTIONS AND CONCERNS ADDRESSED. ALL NEEDS ATTENDED TO. WILL CONTINUE TO MONITOR
[2019-04-12 07:18] LABS: RED CELL DISTRIBUTION WIDTH 27.9 % (11.5-14.5)
[2019-04-12 08:29] LABS: BAND NEUTROPHIL 0 % (0-10); MONOCYTE 8 % (0-7); SEGMENTED NEUTROPHILS 79 % (37-75)
[2019-04-12 08:30] LABS: BASOPHIL 0 % (0-2); rbc morphology (normal/abnorm) ABNORMAL (NORMAL)
[2019-04-12 08:32] LABS: PLATELET MORPHOLOGY PLATELETS NORMAL
[2019-04-12 08:38] VITALS: BP 165/58
--- NOTE | 2019-04-12 08:40 | NUR ---
LAMP SHADE SEWER LULY AWARE PATIENT HAS NO IV ACCESS AND PATIENT IS REFUSING IV ACCESS. PER L[employer] SEWER LULY, OKAY TO HOLD LEVAQUIN AND PROTONIX IV. ALL NEEDS ATTENDED TO. WILL CONTINUE TO MONITOR
[2019-04-12] MEDS ORDERED: FERROUS SULFAT325 M2 PO (08:53)
[2019-04-12] MEDS ORDERED: LEVAQUIN750 MG PO (08:53)
[2019-04-12] MEDS ORDERED: COLACE100 MG PO (08:53)
[2019-04-12 09:59] VITALS: BP 147/54
[2019-04-12 10:00] VITALS: BP 147/54
--- NOTE | 2019-04-12 10:00 | NUR ---
MORNING MEDICATIONS ADMINISTERED AT THIS TIME. PATIENT TOLERATED MEDICATIONS WELL. NO APPARENT ADVERSE EFFECTS. ALL NEEDS ATTENDED TO. WILL CONTINUE TO MONITOR
--- NOTE | 2019-04-12 12:55 | NUR ---
PATIENT STABLE TO BE DISCHARGED TO HOME. DISCHARGE INSTRUCTIONS GIVEN WELL EDUCATION. INSTRUCTED PATIENT ABOUT FOLLOW UP APPOINTMENT. PATIENT VERBALIZES UNDERSTANDING. ID BANDS REMOVED. TELE MONITOR REMOVED AND RETURNED TO PHYSICIAN OFFICE SPECIALIST. ALL BELONGINGS WITH PATIENT. ALL QUESTIONS AND CONCERNS ADDRESSED. ALL NEEDS ATTENDED TO. PATIENT ESCORTED DOWN TO THE LOBBY VIA WHEELCHAIR AT THIS TIME.
== END 2019-04-12 12:55 | disposition home health service (06) | DRG 871 ==
LOC: ED 10:12 → DU 14:24
PROVIDERS: Emergency Medicine; General Practice; Internal Medicine Gastroenterology; ADMIT Internal Medicine
PROC: 30233N1 Transfusion of Nonautologous Red Blood Cells into Peripheral Vein, Percutaneous Approach (ICD-10-PCS; 2019-04-06)
PROC: 0DJ08ZZ Inspection of Upper Intestinal Tract, Via Natural or Artificial Opening Endoscopic (ICD-10-PCS; principal; 2019-04-07 08:30)
PROC: 0DBF8ZX Excision of Right Large Intestine, Via Natural or Artificial Opening Endoscopic, Diagnostic (ICD-10-PCS; 2019-04-07 08:30)
DX: A41.52 Sepsis due to Pseudomonas (principal); J69.0 Pneumonitis due to inhalation of food and vomit; K92.1 Melena; D50.0 Iron deficiency anemia secondary to blood loss (chronic); K57.30 Diverticulosis of large intestine without perforation or abscess without bleeding; E89.0 Postprocedural hypothyroidism; Z68.25 Body mass index [BMI] 25.0-25.9, adult; Z85.820 Personal history of malignant melanoma of skin; Z85.51 Personal history of malignant neoplasm of bladder
CPT/HCPCS: 43235; 45378; 82962; 84439; 94150; 97110-GP; 97116-GP; 97530-GP; C9113; G0378; J0360; J1200; J1610; J1720; J1940; J1956; J2250; J2310; J2543; J2916; J3010; J3490; J7030; J7040; P9016; Q0092; Q0163